=== PATIENT | male | born 2000 | race Caucasian/White ===

== ENCOUNTER 2022-08-24 21:13 | Observation (INO) | payer MEDICAID, OTHER ==
[2022-08-24] MEDS ORDERED: SODIUM CHLORIDE 0.9% 2,000 ML IV STA (21:29)
[2022-08-24] MEDS ORDERED: ONDANSETRON 4 MG/2 ML VIAL IVP STA (21:29)
[2022-08-24] MEDS ORDERED: HYDROmorphone 0.5 MG/0.5 ML SYRINGE IVP STA (21:54)
[2022-08-24 22:04] LABS: Basophils % (A) 0 %; Eosinophils # (A) 0.1 k/uL (0-0.7); Eosinophils % (A) 1 %; HCT 43.3 % (39.0-53.0); HGB 15.1 gm/dL (13.0-17.5); Lymphocytes # (A) 1.1 k/uL (1.0-4.8); Lymphocytes % (A) 7 %; MCH 31.5 pg (25.0-35.0); MCHC 34.8 g/dL (31.0-37.0); MCV 90.4 fL (80.0-100.0); Mean Platelet Volume 7.4; Monocytes # (A) 0.6 k/uL (0-1.0); Monocytes % (A) 4 %; Neutrophils % (A) 87 %; Platelet Count 248 k/uL (150-450); RDW 11.6 % (11.5-15.5)
[2022-08-24 22:08] LABS: Appearance,Urine Clear (Clear); Bilirubin,Urine Negative (Negative); Blood,Urine Negative (Negative); Color,Urine Yellow; Glucose,Urine (UA) Negative (Negative); Ketones,Urine 4+ (Negative); Leukocyte Esterase,Urine Negative (Negative); Nitrite,Urine Negative (Negative); PH, Urine 6.5 (5.0-8.0); Protein,Urine Trace (Negative); Specific Gravity,Urine 1.029 (1.001-1.035)
[2022-08-24 22:13] LABS: ALT 23 U/L (4-49); AST 28 U/L (17-59); African American GFR (CKD) >90 (>60 ml/min/1.73 sqM); Albumin 4.9 g/dL (3.5-5.0); Alkaline Phosphatase 88 U/L (38-126); Anion Gap 11 mmol/L; Blood Urea Nitrogen 16 mg/dL (9-20); Calcium 9.6 mg/dL (8.4-10.2); Carbon Dioxide 25 mmol/L (22-30); Chloride 104 mmol/L (98-107); Glucose 117 mg/dL (74-99); Lipase 31 U/L (23-300); Non-African American GFR(CKD) >90 (>60 ml/min/1.73 sqM); Potassium 4.2 mmol/L (3.5-5.1); Sodium 140 mmol/L (137-145); Total Bilirubin 0.7 mg/dL (0.2-1.3); Total Protein 7.9 g/dL (6.3-8.2)
--- NOTE | 2022-08-24 23:12 | CT ---
EXAMINATION TYPE: CT abdomen pelvis w con DATE OF EXAM: 08/24/2022 COMPARISON: None HISTORY: abdominal pain, nausea, vomiting CT DLP: 1289.4 mGycm Automated exposure control for dose reduction was used. CONTRAST: Performed with IV Contrast, patient injected with 100 mL of Isovue 370. Images obtained from the diaphragm to the floor of the pelvis with IV contrast Lung bases are clear. No pleural effusion. Heart size is normal. No pericardial effusion liver spleen stomach and pancreas appear normal. The bile ducts are not dilated. Gallbladder is intact. There is no mesenteric edema. There is no ascites or free air. There is no sign of a bowel obstructio n. The kidneys show satisfactory contrast opacification. No hydronephrosis. Ureters are not dilated. Del ayed images show normal renal excretion. There is no adrenal mass. No retroperitoneal adenopathy. The bladder distends smoothly. No inguinal hernia no free fluid in the pelvis. There is dilated fluid-fi lled appendix with fat stranding. Appendix measures up to 11 mm. No intestinal wall thickening. The lumbar vertebrae have normal spacing and alignment. Posterior elements are intact. No compression fracture. Bony pelvis is intact. The hip joints are intact. IMPRESSION: There is dilated appendix with fluid and fat stranding related to acute appendicitis. No abscess.
[2022-08-24] MEDS ORDERED: PIPERACILLIN-TAZOBACTAM 3.375 GM in SODIUM CHLORIDE 0.9% 100 ML IVPB STA (23:20)
[2022-08-24] MEDS ORDERED: SODIUM CHLORIDE 0.9% 1,000 ML IV STA (23:22)
[2022-08-24] MEDS ORDERED: NALOXONE 0.4 MG/ML 1 ML VIAL IV PRN (23:25)
[2022-08-24] MEDS ORDERED: ONDANSETRON 4 MG/2 ML VIAL IVP PRN (23:25)
--- NOTE | 2022-08-24 23:47 | ED ---
Abdominal Pain HPI - General Chief Complaint: Abdominal Pain Stated Complaint: ABD Pain Time Seen by Provider: 08/24/22 21:28 Source: patient Mode of arrival: ambulatory Limitations: no limitations - History of Present Illness Initial Comments: Patient is a 21-year-old male presents to the emergency department for abdominal pain. It started abruptly tonight. Patient reports severe cramping in his belly button which radiates to his upper middle abdomen. No back pain. Patient has had several episodes of vomiting. He denies fever and chills. No diarrhea, burning with urination, blood in the urine. Denies alcohol use. - Related Data Previous Rx's Medication Instructions Recorded Albuterol Nebulized [Ventolin 2.5 mg INHALATION Q4H #50 nebu 03/10/14 Nebulized] Allergies Allergy/AdvReac Type Severity Reaction Status Date / Time dairy AdvReac Nausea & Uncoded 08/24/22 21:23 Vomiting & Diarrhea Review of Systems ROS Statement: Those systems with pertinent positive or pertinent negative responses have been documented in the HPI. ROS Other: All systems not noted in ROS Statement are negative. Past Medical History Additional Past Medical History / Comment(s): croup History of Any Multi-Drug Resistant Organisms: None Reported Past Surgical History: No Surgical Hx Reported Past Psychological History: No Psychological Hx Reported Smoking Status: Never smoker Past Alcohol Use History: None Reported Past Drug Use History: Marijuana General Exam Limitations: no limitations General appearance: alert, in distress (Pain) Eye exam: Present: normal appearance, PERRL, EOMI. Absent: scleral icterus, conjunctival injection, periorbital swelling Respiratory exam: Present: normal lung sounds bilaterally. Absent: respiratory distress, wheezes, rales, rhonchi, stridor Cardiovascular Exam: Present: regular rate, normal rhythm, normal heart sounds. Absent: systolic murmur, diastolic murmur, rubs, gallop, clicks GI/Abdominal exam: Present: soft, tenderness (periumbilical, epigastric), normal bowel sounds. Absent: distended, guarding, rebound, rigid Neurological exam: Present: alert, oriented X3, CN II-XII intact Psychiatric exam: Present: normal affect, normal mood Skin exam: Present: warm, dry, intact, normal color. Absent: rash Course Vital Signs 08/24/22 21:20 Temperature 97.7 F Pulse Rate 83 Respiratory 20 Rate Blood Pressure 135/87 O2 Sat by Pulse 99 Oximetry Medical Decision Making - Medical Decision Making Was pt. sent in by a medical professional or institution ([facility], PROGRAM SPECIALIST, urgent care, hospital, or jail...) When possible be specific @ -[No] Did you speak to anyone other than the patient for history (EMS, parent, family, police, friend...)? What history was obtained from this source @ -[No] Did you review nursing and triage notes (agree or disagree)? Why? @ -[I reviewed and agree with nursing and triage notes] Were old charts reviewed (outside hosp., previous admission, EMS record, old EKG, old radiological studies, urgent care reports/EKG's, jail records)? Report findings @ -[No old charts were reviewed] Differential Diagnosis (chest pain, altered mental status, abdominal pain women, abdominal pain men, vaginal bleeding, weakness, fever, dyspnea, syncope, headache, dizziness, GI bleed, back pain, seizure, CVA, palpatations, mental health)? @ -Differential Abdominal Pain Men: Appendicitis, cholecystitis, diverticulosis, ischemic bowel, pancreatitis, hepatitis, UTI, gastroenteritis, AAA, incarcerated hernia, bowel obstruction, constipation, inflammatory bowel, hepatitis, peptic ulcer disease, splenic infarction, perforated viscus, testicular torsion, this is not meant to be an all-inclusive list EKG interpreted by me (3pts min.). @ -[As above] X-rays interpreted by me (1pt min.). @ -[None done] CT interpreted by me (1pt min.). @ -Yes, CT of the abdomen and pelvis with contrast shows acute appendicitis without evidence of perforation or abscess U/S interpreted by me (1pt. min.). @ -[None done] What testing was considered but not performed or refused? (CT, X-rays, U/S, labs)? Why? @ -[None] What meds were considered but not given or refused? Why? @ -[None] Did you discuss the management of the patient with other professionals (professionals i.e. AGUS Hood, PROGRAM SPECIALIST, lab, RT, psych nurse, medical social worker, teasel gig operator, teacher, search and rescue officer, geriatric case manager)? Give summary @ -[No] Was smoking cessation discussed for >3mins.? @ -[No] Was critical care preformed (if so, how long)? @ -[No] Were there social determinants of health that impacted care today? How? (Homelessness, low income, unemployed, alcoholism, drug addiction, transportation, low edu. Level, literacy, decrease access to med. care, prison, rehab)? @ -[No] Was there de-escalation of care discussed even if they declined (Discuss DNR or withdrawal of care, Hospice)? DNR status @ -[No] What co-morbidities impacted this encounter? (DM, HTN, Smoking, COPD, CAD, Cancer, CVA, ARF, Chemo, Hep., AIDS, mental health diagnosis, sleep apnea, morbid obesity)? @ -[None] Was patient admitted / discharged? Hospital course, mention meds given and ro patrizia, prescriptions, significant lab abnormalities, going to OR and other pertinent info. @ -Patient presenting with abdominal pain and vomiting. Afebrile. Patient appears to be in pain. There is tenderness in the epigastric and periumbilical region. Laboratory studies obtained. There is leukocytosis of 15.0. CT of the abdomen and pelvis with contrast shows appendicitis without perforation or abscess. Blood cultures obtained. IV Zosyn started. Pain and nausea controlled. Case discussed with Dr. Dover patient will be admitted. He is NPO and admitted in stable condition. Undiagnosed new problem with uncertain prognosis? @ -[No] Drug Therapy requiring intensive monitoring for toxicity (Heparin, Nitro, Insulin, Cardizem)? @ -[No] Were any procedures done? @ -[No] Diagnosis/symptom? @ -appendicitis Acute, or Chronic, or Acute on Chronic? @ -acute Uncomplicated (without systemic symptoms) or Complicated (systemic symptoms)? @ -uncomplicated Side effects of treatment? @ -[No] Exacerbation, Progression, or Severe Exacerbation? @ -[No] Poses a threat to life or bodily function? How? (Chest pain, [place], [place], pneumonia, PE, COPD, DKA, ARF, appy, cholecystitis, CVA, Diverticulitis, Homicidal, Suicidal, threat to staff... and all critical care pts) @ -[No] Dr. Hubbard is my attending - Lab Data Result diagrams: 08/24/22 21:55 08/24/22 21:55 Lab Results 08/24/22 08/24/22 08/24/22 Range/Units 21:55 21:55 21:55 WBC 15.0 H (4.0-11.0) k/uL RBC 4.80 (4.30-5.90) m/uL Hgb 15.1 (13.0-17.5) gm/dL Hct 43.3 (39.0-53.0) % MCV 90.4 (80.0-100.0) fL MCH 31.5 (25.0-35.0) pg MCHC 34.8 (31.0-37.0) g/dL RDW 11.6 (11.5-15.5) % Plt Count 248 (150-450) k/uL MPV 7.4 Neutrophils % 87 % Lymphocytes % 7 % Monocytes % 4 % Eosinophils % 1 % Basophils % 0 % Neutrophils # 13.0 H (1.3-7.7) k/uL Lymphocytes # 1.1 (1.0-4.8) k/uL Monocytes # 0.6 (0-1.0) k/uL Eosinophils # 0.1 (0-0.7) k/uL Basophils # 0.0 (0-0.2) k/uL Sodium 140 (137-145) mmol/L Potassium 4.2 (3.5-5.1) mmol/L Chloride 104 (98-107) mmol/L Carbon Dioxide 25 (22-30) mmol/L Anion Gap 11 mmol/L BUN 16 (9-20) mg/dL Creatinine 0.85 (0.66-1.25) mg/dL Est GFR (CKD-EPI)AfAm >90 (>60 ml/min/1.73 sqM) Est GFR (CKD-EPI)NonAf >90 (>60 ml/min/1.73 sqM) Glucose 117 H (74-99) mg/dL Plasma Lactic Acid Adrian (0.7-2.0) mmol/L Calcium 9.6 (8.4-10.2) mg/dL Total Bilirubin 0.7 (0.2-1.3) mg/dL AST 28 (17-59) U/L ALT 23 (4-49) U/L Alkaline Phosphatase 88 (38-126) U/L Total Protein 7.9 (6.3-8.2) g/dL Albumin 4.9 (3.5-5.0) g/dL Lipase 31 (23-300) U/L Urine Color Yellow Urine Appearance Clear (Clear) Urine pH 6.5 (5.0-8.0) Ur Specific [place] 1.029 (1.001-1.035) Urine Protein Trace H (Negative) Urine Glucose (UA) Negative (Negative) Urine Ketones 4+ H (Negative) Urine Blood Negative (Negative) Urine Nitrite Negative (Negative) Urine Bilirubin Negative (Negative) Urine Urobilinogen 2.0 (<2.0) mg/dL Ur Leukocyte Esterase Negative (Negative) 08/24/22 Range/Units 21:55 WBC (4.0-11.0) k/uL RBC (4.30-5.90) m/uL Hgb (13.0-17.5) gm/dL Hct (39.0-53.0) % MCV (80.0-100.0) fL MCH (25.0-35.0) pg MCHC (31.0-37.0) g/dL RDW (11.5-15.5) % Plt Count (150-450) k/uL MPV Neutrophils % % Lymphocytes % % Monocytes % % Eosinophils % % Basophils % % Neutrophils # (1.3-7.7) k/uL Lymphocytes # (1.0-4.8) k/uL Monocytes # (0-1.0) k/uL Eosinophils # (0-0.7) k/uL Basophils # (0-0.2) k/uL Sodium (137-145) mmol/L Potassium (3.5-5.1) mmol/L Chloride (98-107) mmol/L Carbon Dioxide (22-30) mmol/L Anion Gap mmol/L BUN (9-20) mg/dL Creatinine (0.66-1.25) mg/dL Est GFR (CKD-EPI)AfAm (>60 ml/min/1.73 sqM) Est GFR (CKD-EPI)NonAf (>60 ml/min/1.73 sqM) Glucose (74-99) mg/dL Plasma Lactic Acid Adrian 1.0 (0.7-2.0) mmol/L Calcium (8.4-10.2) mg/dL Total Bilirubin (0.2-1.3) mg/dL AST (17-59) U/L ALT (4-49) U/L Alkaline Phosphatase (38-126) U/L Total Protein (6.3-8.2) g/dL Albumin (3.5-5.0) g/dL Lipase (23-300) U/L Urine Color Urine Appearance (Clear) Urine pH (5.0-8.0) Ur Specific [place] (1.001-1.035) Urine Protein (Negative) Urine Glucose (UA) (Negative) Urine Ketones (Negative) Urine Blood (Negative) Urine Nitrite (Negative) Urine Bilirubin (Negative) Urine Urobilinogen (<2.0) mg/dL Ur Leukocyte Esterase (Negative) Disposition Clinical Impression: Acute appendicitis Disposition: ADMITTED IP TO THIS HOSP Condition: Stable Referrals: None,Stated [Primary Care Provider] - 1-2 days
[2022-08-25] MEDS: HYDROmorphone 0.5 MG/0.5 ML SYRINGE IVP PRN ×2 (00:59→22:53)
[2022-08-25] MEDS: PIPERACILLIN-TAZOBACTAM 3.375 GM in SODIUM CHLORIDE 0.9% 100 ML IVPB SCH ×3 (08:23→22:52)
--- NOTE | 2022-08-25 09:07 | P.GSHP ---
History of Present Illness H&P Date: 08/25/22 Chief Complaint: Acute abdominal pain, nausea and emesis Patient is a 21-year-old gentleman presented to [facility] emergency department the evening of 08/24/2022 with chief complaint of less than 24 hours of progressive abdominal pain that started in the mid abdomen and came to rest in the right lower quadrant accompanied by waves of nausea and a few bouts of nonbloody emesis. He denies fever or chills. Hasn't had similar symptoms in the past. No known personal history of inflammatory bowel disease, no previous abdominal surgeries. He's had an afebrile and hemodynamically stable appearance overnight. White blood cell count was elevated at 15.0, hemoglobin normal range at 15.1, platelet count 248. Conference of metabolic panel was normal and all counts with the exception of a mildly elevated glucose at 117. Liver functions within normal limits. Urinalysis was reflected a degree of dehydration without UTI. Computed tomography scan of the abdomen and pelvis was obtained, images and official report reviewed revealing inflammatory changes and thickening of the appendix and mild periappendiceal fat stranding without evidence of rupture or abscess, no free air, no free fluid, no obstructive findings. Patient was admitted to my care in the ER and started on IV antibiotics for definitive treatment. - Review of Systems All systems: negative - Constitutional Constitutional: Reports as per HPI Past Medical History Additional Past Medical History / Comment(s): croup History of Any Multi-Drug Resistant Organisms: None Reported Past Surgical History: No Surgical Hx Reported Past Anesthesia/Blood Transfusion Reactions: No Reported Reaction Past Psychological History: No Psychological Hx Reported Smoking Status: Never smoker Past Alcohol Use History: None Reported Past Drug Use History: Marijuana Medications and Allergies Home Medications Medication Instructions Recorded Confirmed Type No Known Home Medications 08/25/22 08/25/22 History Allergies Allergy/AdvReac Type Severity Reaction Status Date / Time latex Allergy Rash/Hives Verified 08/25/22 07:12 dairy AdvReac Nausea & Uncoded 08/25/22 06:52 Vomiting & Diarrhea Surgical - Exam Osteopathic Statement: *. No significant issues noted on an osteopathic structural exam other than those noted in the History and Physical/Consult. Vital Signs Temp Pulse Resp BP Pulse Ox 97.7 F 83 20 135/87 99 08/24/22 21:20 08/24/22 21:20 08/24/22 21:20 08/24/22 21:20 08/24/22 21:20 - General well developed, well nourished, no distress - Eyes PERRL, normal ocular movement - ENT normal pinna, normal nares, normal mucosa, no hearing loss, no congestion - Neck trachea midline, no venous distension - Respiratory normal expansion, normal respiratory effort, clear to auscultation - Cardiovascular Rhythm: regular - Abdomen There is moderate focal tenderness in the right lower quadrant over McBurney's point, trace positive Rovsing sign consistent with localized right lower quadrant peritonitis. No guarding. - Integumentary no rash, no growths, no abnormal pigmentation - Neurologic normal coordination, normal sensation - Psychiatric oriented to time, oriented to person, oriented to place, speech is normal, memory intact Results - Labs 08/24/22 21:55 08/24/22 21:55 Abnormal Lab Results - Last 24 Hours (Table) 08/24/22 08/24/22 08/24/22 Range/Units 21:55 21:55 21:55 WBC 15.0 H (4.0-11.0) k/uL Neutrophils # 13.0 H (1.3-7.7) k/uL Glucose 117 H (74-99) mg/dL Urine Protein Trace H (Negative) Urine Ketones 4+ H (Negative) Diabetes panel 08/24/22 Range/Units 21:55 Sodium 140 (137-145) mmol/L Potassium 4.2 (3.5-5.1) mmol/L Chloride 104 (98-107) mmol/L Carbon Dioxide 25 (22-30) mmol/L BUN 16 (9-20) mg/dL Creatinine 0.85 (0.66-1.25) mg/dL Glucose 117 H (74-99) mg/dL Calcium 9.6 (8.4-10.2) mg/dL AST 28 (17-59) U/L ALT 23 (4-49) U/L Alkaline Phosphatase 88 (38-126) U/L Total Protein 7.9 (6.3-8.2) g/dL Albumin 4.9 (3.5-5.0) g/dL Calcium panel 08/24/22 Range/Units 21:55 Calcium 9.6 (8.4-10.2) mg/dL Albumin 4.9 (3.5-5.0) g/dL Pituitary panel 08/24/22 Range/Units 21:55 Sodium 140 (137-145) mmol/L Potassium 4.2 (3.5-5.1) mmol/L Chloride 104 (98-107) mmol/L Carbon Dioxide 25 (22-30) mmol/L BUN 16 (9-20) mg/dL Creatinine 0.85 (0.66-1.25) mg/dL Glucose 117 H (74-99) mg/dL Calcium 9.6 (8.4-10.2) mg/dL Adrenal panel 08/24/22 Range/Units 21:55 Sodium 140 (137-145) mmol/L Potassium 4.2 (3.5-5.1) mmol/L Chloride 104 (98-107) mmol/L Carbon Dioxide 25 (22-30) mmol/L BUN 16 (9-20) mg/dL Creatinine 0.85 (0.66-1.25) mg/dL Glucose 117 H (74-99) mg/dL Calcium 9.6 (8.4-10.2) mg/dL Total Bilirubin 0.7 (0.2-1.3) mg/dL AST 28 (17-59) U/L ALT 23 (4-49) U/L Alkaline Phosphatase 88 (38-126) U/L Total Protein 7.9 (6.3-8.2) g/dL Albumin 4.9 (3.5-5.0) g/dL - Imaging CT scan - abdomen: report reviewed, image reviewed Assessment and Plan Assessment: 21-year-old gentleman with a clinical history, physical exam, labs, and imaging all consistent with acute uncomplicated appendicitis. Appears hemodynamically stable, no evidence of rupture or abscess on initial imaging. Feeling a bit b nathen after starting IV antibiotics. Plan: Options for further treatment were discussed with the patient at bedside. He's been started on appropriate broad-spectrum IV antibiotics with Zosyn. He wishes to move forward with laparoscopic, possible open appendectomy to be performed today and give informed consent for the same after discussion of risks, benefit and alternatives treatment. Of bleeding at this done early in the day we might potentially be able to get him home by a late this afternoon, alternatively I'll anticipate him staying in the hospital overnight. Time with Patient: Greater than 30
[2022-08-25] MEDS ORDERED: ACETAMINOPHEN TAB 500 MG TAB PO PRN (09:11)
[2022-08-25] MEDS ORDERED: IV FLUID CONTINUATION 700 ML IV ONE (10:49)
[2022-08-25] MEDS ORDERED: DEXAMETHASONE SOD PHOSPHATE 4 MG/ML 1 ML VIAL IV ONE (11:07)
[2022-08-25] MEDS ORDERED: DEXAMETHASONE SOD PHOSPHATE 4 MG/ML 1 ML VIAL IVP ONE (11:08)
[2022-08-25] MEDS ORDERED: HEPARIN SODIUM,PORCINE 5,000 UNIT/ML 1 ML VIAL SQ ONE (11:32)
[2022-08-25] MEDS ORDERED: BUPIVACAINE (PF) 0.25% 30 ML VIAL SQ ONE ×2 (12:35)
[2022-08-25] MEDS ORDERED: LIDOCAINE 1%-EPI 1:100,000 20 ML VIAL SQ ONE ×2 (12:35)
[2022-08-25] MEDS ORDERED: SUCCINYLCHOLINE CHLORIDE 200 MG/10 ML VIAL IV ONE (12:41)
[2022-08-25] MEDS ORDERED: MIDAZOLAM 2 MG/2 ML VIAL ONE (12:41)
[2022-08-25] MEDS ORDERED: ROCURONIUM 10 MG/ML (5 ML VIAL) IV ONE (12:41)
[2022-08-25] MEDS ORDERED: fentaNYL (PF) 50 MCG/ML 2 ML AMP ONE (12:41)
[2022-08-25] MEDS ORDERED: LIDOCAINE 2% INJ 20 MG/ML (2 ML VIAL) ONE (12:41)
[2022-08-25] MEDS ORDERED: NEOSTIGMINE 1 MG/ML 10 ML VIAL ONE (12:41)
[2022-08-25] MEDS ORDERED: KETOROLAC 15 MG/ML 1 ML VIAL ONE (12:41)
[2022-08-25] MEDS ORDERED: PROPOFOL 10 MG/ML 20 ML VIAL IV ONE (12:41)
[2022-08-25] MEDS ORDERED: GLYCOPYRROLATE 0.2 MG/ML 2 ML VIAL ONE (12:41)
[2022-08-25] MEDS ORDERED: ONDANSETRON 4 MG/2 ML VIAL ONE (12:41)
[2022-08-25] MEDS ORDERED: LACTATED RINGERS 1,000 ML IV ONE (12:50)
--- NOTE | 2022-08-25 13:12 | P.OP ---
Date of Procedure: 08/25/22 Preoperative Diagnosis: Acute appendicitis Postoperative Diagnosis: Acute appendicitis rupture or abscess Procedure(s) Performed: Laparoscopic appendectomy Anesthesia: ELVIN, local Surgeon: Jose Dover Estimated Blood Loss (ml): 5 Pathology: other (Appendix divided to pathology, intra-abdominal fluid submitted for aerobes, anaerobes and Gram stain.) Condition: stable Disposition: PACU Indications for Procedure: Patient is a 21-year-old gentleman who presented to [facility] emergency department the evening of August 18 with chief complaint of less than 24 hours of progressive mid abdominal pain and came to rest in the right lower quadrant accompanied by nausea and at least one bout of nonbloody emesis. He hasn't had similar symptoms in the past, has no known personal history of inflammatory bowel disease. Computed tomography scan of the area and pelvis was consistent with acute appendicitis without rupture or abscess, physical exam and clinical history were consistent with the same. Patient was started on broad- spectrum antibiotics and wished to move forward with surgery. He gave informed consent for the aforementioned procedure after discussion of risks, benefit and alternatives to treatment. Operative Findings: As above Description of Procedure: Patient was taken to the operating suite and placed in supine position. Following induction of general orotracheal anesthesia he was prepped and draped in sterile fashion. Local anesthesia field block was a customs guard to the planned incisions with 1% lidocaine and quarter percent Marcaine with epinephrine solution. Incision was made in the left upper quadrant a Bah's point with 11 blade and abdomen entered under laparoscopic visualization with 5 mm trocar. Abdomen was insufflated and surveyed. No apparent injury or bleeding were noted. A second 5 mm port was placed at the umbo at the lower abdomen and midline and the palmers point port was upsized to 12 mm all under laparoscopic visualization. Cecum and terminal ileum were readily identified as was the appendix which had an acutely inflamed and indurated appearance without gross signs of rupture or abscess. There was some trace thin seropurulent fluid this was irrigated and aspirated and submitted for culture for completeness. Window was created at the base of the appendix at its junction with the cecum bluntly and divided with Endo RAFAEL tri-staple Vanegas load. The appendiceal artery and mesoappendix were taken down with LigaSure and specimen submitted with the Endo Catch bag through the 11 mm trocar site. Staple line was intact, hemostasis excellent. At the 11 mm trocar was closed with 0 Vicryl tie and Azeem-Leonora suture passer in [id number] fashion. Abdomen was desufflated, all ports withdrawn and patient transferred to the postanesthesia care unit in stable condition. We'll continue IV antibiotics okay to advance to clear liquids, anticipate discharge home tomorrow if no issues overnight.
[2022-08-25] MEDS ORDERED: HYDROmorphone 0.5 MG/0.5 ML SYRINGE IVP ONE (13:33)
[2022-08-25] MEDS: LACTATED RINGERS 1,000 ML IV SCH ×3 (16:33→20:49)
[2022-08-25] MEDS: KETOROLAC 15 MG/ML 1 ML VIAL IVP PRN (16:49)
[2022-08-25] MEDS: HEPARIN SODIUM,PORCINE/PF 5,000 UNIT/0.5 ML SYRINGE SQ SCH ×2 (16:50→22:52)
[2022-08-26 02:27] VITALS: RESP 18
[2022-08-26] MEDS: HYDROmorphone 0.5 MG/0.5 ML SYRINGE IVP PRN (05:38)
[2022-08-26] MEDS: LACTATED RINGERS 1,000 ML IV SCH ×2 (05:42→08:18)
[2022-08-26] MEDS ORDERED: HYDROmorphone 0.5 MG/0.5 ML SYRINGE IVP PRN (07:00)
[2022-08-26] MEDS: PIPERACILLIN-TAZOBACTAM 3.375 GM in SODIUM CHLORIDE 0.9% 100 ML IVPB SCH (07:14)
[2022-08-26] MEDS: HEPARIN SODIUM,PORCINE/PF 5,000 UNIT/0.5 ML SYRINGE SQ SCH (07:14)
[2022-08-26 09:31] LABS: Basophils # (A) 0.03 X 10*3/uL (0.00-0.10); Basophils % (A) 0.2 %; Eosinophils # (A) 0.01 X 10*3/uL (0.04-0.35); Eosinophils % (A) 0.1 %; HCT 38.2 % (39.6-50.0); HGB 12.9 g/dL (13.0-17.0); Immature Grans, Automated 0.3 %; Lymphocytes # (A) 2.13 X 10*3/uL (0.90-5.00); Lymphocytes % (A) 17.5 %; MCH 30.9 pg (27.0-32.0); MCHC 33.8 g/dL (32.0-37.0); MCV 91.6 fL (80.0-97.0); Mean Platelet Volume 10.7 fL (9.5-12.2); Monocytes # (A) 0.95 X 10*3/uL (0.20-1.00); Monocytes % (A) 7.8 %; NRBC Per 100 WBC 0 /100 WBCS (0.0-0.0); Neutrophils # (A) 9.03 X 10*3/uL (1.80-7.70); Neutrophils % (A) 74.1 %; Platelet Count 251 X 10*3/uL (140-440); RBC 4.17 X 10*6/uL (4.40-5.60); RDW 11.8 % (11.5-14.5); WBC 12.19 X 10*3/uL (4.50-10.00)
[2022-08-26 09:40] VITALS: BP 113/65; PULSE 85; TEMP 97.9
[2022-08-26 09:49] LABS: Albumin 4.2 g/dL (3.8-4.9); Anion Gap 14.8 mmol/L (10.00-18.00); BUN/Creat Ratio 10.9 Ratio (12.00-20.00); Blood Urea Nitrogen 10.9 mg/dL (9.0-27.0); Calcium 9.2 mg/dL (8.7-10.3); Carbon Dioxide 21.2 mmol/L (20.0-27.5); Globulin 2.1 g/dL (1.6-3.3); Non-African American GFR(CKD) 107.9 (60.0-200.0); Potassium 3.8 mmol/L (3.5-5.5); Total Bilirubin 0.8 mg/dL (0.30-1.20); Total Protein 6.3 g/dL (6.2-8.2)
[2022-08-26] MEDS: KETOROLAC 15 MG/ML 1 ML VIAL IVP PRN (10:52)
--- NOTE | 2022-08-26 12:04 | P.DS ---
Providers Date of admission: 08/24/22 23:29 Expected date of discharge: 08/26/22 Attending physician: Jose Dover DO Consults: 08/25/22 09:10 Consult Physician Routine Consulting Provider: [facility] Consult Reason/Comments: [facility] Do you want consulting provider notified?: Yes Primary care physician: Stated None Hospital Course: Patient is a 21-year-old gentleman presented to [facility] emergency department the evening of 08/24/2022 with chief complaint of less than 24 hours of progressive abdominal pain that started in the mid abdomen and came to rest in the right lower quadrant accompanied by waves of nausea and a few bouts of nonbloody emesis. He denies fever or chills. Hasn't had similar symptoms in the past. No known personal history of inflammatory bowel disease, no previous abdominal surgeries. He's had an afebrile and hemodynamically stable appearance overnight. White blood cell count was elevated at 15.0, hemoglobin normal range at 15.1, platelet count 248. Conference of metabolic panel was normal and all counts with the exception of a mildly elevated glucose at 117. Liver functions within normal limits. Urinalysis was reflected a degree of dehydration without UTI. Computed tomography scan of the abdomen and pelvis was obtained, images and official report reviewed revealing inflammatory changes and thickening of the appendix and mild periappendiceal fat stranding without evidence of rupture or abscess, no free air, no free fluid, no obstructive findings. Patient was admitted to care in the ER and started on IV antibiotics for definitive treatment. Patient gave informed consent for laparoscopic appendectomy which was completed without incident. Operative findings were consistent with acute appendicitis without rupture or abscess. He was transitioned to the medical surgery did quite well overnight. He had a hemodynamically stable and afebrile appearance over the course of his stay. He tolerated clear liquids without issue. Does not require antibiotics on discharge. Pain was adequately controlled with nonnarcotic adjuncts. As such she was discharged home with instructions to take Tylenol, 1000 mg every 6 hours as needed for pain and he may add ibuprofen 600- 800 mg every 8 hours with food if needed. He was asked to follow-up in the general surgery clinic with either myself or Dr. Montoya 1-2 weeks post discharge. Assessment: Acute appendicitis without rupture or abscess Procedures: Laparoscopic appendectomy Patient Condition at Discharge: Good Plan - Discharge Summary Discharge Rx Participant: Yes New Discharge Prescriptions: No Action No Known Home Medications Discharge Medication List No Known Home Medications 08/25/22 [History] Follow up Appointment(s)/Referral(s): None,Stated [Primary Care Provider] - 1-2 days Activity/Diet/Wound Care/Special Instructions: Follow-up with either Dr. Dover or Dr. Montoya in the office 1-2 weeks post discharge. Follow-up with primary care in a similar time frame. May shower, no lifting over 10 pounds for 4 weeks postoperatively. May take Tylenol, [id number] 1000 mg every 6 hours as needed for pain, may add ibuprofen 600-800 mg with food every 8 hours as needed for pain. Discharge Disposition: HOME SELF-CARE
== END 2022-08-26 12:32 | disposition home or self-care (01) ==
LOC: EC 21:13 → 4SSUR 23:29 → INTOOBSV 23:29 → 4SSUR 08-25 00:28 → UNDODISIN 08-26 12:32
PROVIDERS: ADMIT Surgery; ATTEND Surgery
DX: K35.32 Acute appendicitis with perforation, localized peritonitis, and gangrene, without abscess (principal)
CPT/HCPCS: 44970; 96361 ×2; 96366; 96376; 96365; 96375; 99285; 36415; 88304; 80053 ×2; 83605; 83690; 85025 ×2; 81003; 87040; 87070; 87205; 87075; 74177; G0378 ×3; J2543 ×3; J2250; J0330; J1644 ×3; J1100; J2710; J2405 ×2; J3010; J1885 ×2; J2704; J1170 ×3; Q9967; J2001

== ENCOUNTER → 2024-10-04 | Outpatient (CLI) | payer BC ==
--- NOTE | 2024-10-04 17:48 | US ---
EXAMINATION TYPE: US thyroid st tissue head/neck DATE OF EXAM: 10/04/2024 COMPARISON: EXAMINATION TYPE: US thyroid st tissue head/neck DATE OF EXAM: 10/04/2024 COMPARISON: CT brain C-spine 09/16/2011 CLINICAL INDICATION: Male, 24 years old with history of R22.1 LOCAL SWELLING MASS LUMP IN NECK; Lump midline neck TECHNIQUE: Multiple grayscale and color Doppler ultrasound images of the midline neck in the patient 's region of palpable abnormality were obtained FINDINGS/IMPRESSION: Complex cystic lesion with debris identified within the midline neck at patient' s region of abnormality. This measures 1.9 x 1.7 x 1.9 cm. No internal color flow identified. 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 [facility], , 10/04/2024 5:46 PM
== END | disposition home or self-care (01) ==
LOC: RADUSWWP 15:54
PROVIDERS: ATTEND Internal Medicine Geriatric Medicine
DX: R22.1 Localized swelling, mass and lump, neck (principal)
CPT/HCPCS: 76536

== ENCOUNTER → 2024-11-16 | Outpatient (CLI) | payer BC | END | disposition home or self-care (01) | LOC: RADCTMAIN 18:24 | PROVIDERS: ATTEND Student in an Organized Health Care Education/Training Program | DX: Z53.9 Procedure and treatment not carried out, unspecified reason (principal) ==